=== PATIENT | female | born 1980 | race American Indian/Alaskan Native ===

== ENCOUNTER 2017-11-03 22:17 | Inpatient (IN) | payer OTHER ==
--- NOTE | 2017-11-03 23:01 | History and Physical Report ---
History of Present Illness Date of admission: 11/03/17 22:17 History of present illness: Patient presents for labor induction due to macrosomia. Estimated weight of 4035 g Menstrual History Regularity: regular Menses every: 28 days Duration: 5 LMP: 01/26/2017 LMP reliability: definite test type: urine test Date: 09/21/2017 BC at conception: none Planned ? yes EDC Calculations LMP: 11/02/2017 EDC Confirmation: 11/02/2017 Past History : 2 Term Births: 1 Living Children: 1 Para: 1 # 1 Delivery date: 2012 Weeks Gestation: 40 Delivery type: Anesthesia type: none Delivery location: [facility] Infant Sex: Female weight: 7 Comments: had elective IOL @ 40w Past Surgical History: female circumcision Past Medical History Surgery (Non-tube coremaker): female circumcision Abnormal PAP: negative KRYSTAL Exposure: negative Infertility: negative Uterine Anomaly: negative Uterine Surgery (not C/S): negative Other Gynecologic Problems: negative Infection History Hx of STD: none HIV Risk Eval: low risk Hepatitis B Risk Eval: low risk Personal hx. of genital herpes: no Partner hx. of genital herpes: no Varicella/Chicken Pox Status: Previous Disease TB Risk: no Genetic History ADVANCED MATERNAL AGE Congenital Heart Defect: Mom: no Dad: no Sam Disease: Mom: no Dad: no Thalassemia Mom: no Dad: no Neural Tube Defect Mom: no Dad: no Down's Syndrome Mom: no Dad: no Adin-Sachs Mom: no Dad: no Sickle Cell Disease/Trait Mom: no Dad: no Hemophilia Mom: no Dad: no Muscular Dystrophy Mom: no Dad: no Cystic Fibrosis Mom: no Dad: no Whiteside Chorea Mom: no Dad: no Mental Retardation Mom: no Dad: no Fragile X Mom: no Dad: no Other Genetic/Chromosomal Disorder Mom: no Dad: no Child w/other defect Mom: no Dad: no Enviromental Exposures Xray Exposure: no Medication, drug, or alcohol use since LMP: no Chemical/Other Exposure: no Exposure to Cat Liter: no Hx of Parvovirus (Fifth Disease): no Occupational Exposure to Children: none Current Allergies (reviewed today): No known allergies Past History Past Medical History: other (see HPI) Past Surgical History: other (see HPI) Family/Genetic History: other (see HPI) Social history: other (see HPI) - Obstetrical History Expected Date of Delivery: 11/02/17 Actual Gestation: 40 Week(s) 1 Day(s) : 2 Para: 1 Hx # Term Pregnancies: 1 Number of Pregnancies: 0 Spontaneous Abortions: 0 Induced : 0 Number of Living Children: 1 - Physical Exam Breasts: Positive: deferred Cardiovascular: Regular rate Lungs: Positive: Normal air movement Abdomen: Positive: normal appearance, soft Genitourinary (Female): Positive: other (s/p circumcision) Results All other labs normal. Assessment and Plan - Patient Problems (1) macrosomia affecting management of mother, antepartum Current Visit: Yes Status: Acute Plan to address problem: Discussed with the patient the nature of serial induction. Questions answered. Discussed the risks of and. indications for operative intervention. Will place Cervidil this evening overnight. After removal in the morning we will allow to eat and then started Pitocin IV .
[2017-11-04] MEDS ORDERED: PHENERGAN PO PRN (01:17)
[2017-11-04] MEDS ORDERED: BRETHINE IVP PRN (01:17)
[2017-11-04] MEDS ORDERED: CERVIDIL VG ONE (01:17)
[2017-11-04] MEDS ORDERED: XYLOCAINE 2% INFILTRATI ONE (01:17)
[2017-11-04] MEDS ORDERED: ePHEDrine SULFATE IV PRN ×2 (01:17→19:04)
[2017-11-04] MEDS ORDERED: STADOL IV PRN (01:17)
[2017-11-04] MEDS ORDERED: AMBIEN PO PRN (01:22)
[2017-11-04 01:42] LABS: Hematocrit 35.6 % (30.3-42.9); Mean Corpuscular HGB Conc 34 % (30-34); Mean Corpuscular Volume 75 fl (79-97); Platelet Count 170 K/mm3 (140-440); Red Blood Count 4.72 M/mm3 (3.65-5.03); Red Cell Distribution Width 17.8 % (13.2-15.2)
[2017-11-04] MEDS: LACTATED RINGERS 1,000 ML IV SCH ×4 (01:48→23:47)
[2017-11-04 01:51] LABS: Mean Corpuscular Hemoglobin 25 pg (28-32)
[2017-11-04] MEDS ORDERED: PITOCin/NS 20 UNIT/1000ML DRIP 20 UNITS/1,000 ML BAG IV SCH (02:00)
--- NOTE | 2017-11-04 07:28 | Event Note ---
Date: 11/04/17 cervidil placed late (0200) will keep in until 1145, remove and allow regular lunch then start pitocin 4x4. JOHNATHAN Ross aware of plan of care.
[2017-11-04] MEDS ORDERED: PITOCin/NS 30 UNIT/500ML 30 UNITS/500 ML BAG IV SCH (12:00)
--- NOTE | 2017-11-04 18:47 | Progress Note ---
Assessment and Plan - Patient Problems (1) macrosomia affecting management of mother, antepartum Current Visit: Yes Status: Acute Plan to address problem: -cont to hold pitocin -will bolus for epidural at this time -d/w riks of c/s for failure to progress, Cat II/III tracing remote from delivery, or other or maternal indications -EFW 8lb 14 oz prevous was 7lbs and pt delivered w/o any problems or dystocia as per her and in [place]. -anticipate Subjective - Subjective Date of service: 11/04/17 Principal diagnosis: 40+ wks for IOL LGA Interval history: Pt advised that she is having a cat II tracing and that internal monitors are needed. When I examined the pt the bed was noted to be wet and there is light green fluid seen on exam. Bag palpated pt pt is ruptured. Exact time of rupture is not known. ISE, IUPC placed w/o difficulty. Pitocin will be d/c at this time. I did d/w pt and risk of c/s for worsening tracing remote from delivery. Pt and expressed understanding and questions were addressed and answered. Will sign c/s consent at this time. Pt will bolous for epidural at this time. tracing improving now that the pitocin is off. All questions were addressed and answered. Patient reports: loss of fluid, no new complaints Objective - Vital Signs Vital Signs: Vital Signs - 12hr 11/04/17 11/04/17 11/04/17 07:48 10:38 15:26 Temperature 97.9 F 98.4 F 97.6 F Respiratory 18 20 18 Rate - Exam FHR: category 2 Cervical Dilatation: 5 Cervical Effacement Percentage: 70 station: -2 Uterine Contraction Pattern: Regular Uterine Tone Measurement Phase: Resting Uterine Contraction Intensity: Moderate - Labs Labs: Abnormal Labs 11/04/17 00:45 MCV 75 L MCH 25 L RDW 17.8 H Laboratory Results - last 24 hr 11/04/17 11/04/17 00:45 00:45 WBC 10.4 RBC 4.72 Hgb 12.0 Hct 35.6 MCV 75 L MCH 25 L MCHC 34 RDW 17.8 H Plt Count 170 Blood Type B POSITIVE Antibody Screen Negative
[2017-11-04] MEDS ORDERED: NARCAN 2 MG/2 ML IV PRN (19:04)
--- NOTE | 2017-11-04 19:04 | Anesthesia Consultation ---
Anesthesia Consult and Med Hx - Airway Anesthetic Teeth Evaluation: Good ROM Head & Neck: Adequate Mental/Hyoid Distance: Adequate Mallampati Class: Class II Intubation Access Assessment: Good - Pulmonary Exam CTA: Yes - Cardiac Exam Cardiac Exam: RRR - Pre-Operative Health Status ASA Pre-Surgery Classification: ASA2 Proposed Anesthetic Plan: Epidural, Spinal - Pulmonary Hx Asthma: No - Cardiovascular System Hx Hypertension: No - Central Nervous System Hx Seizures: No Hx Psychiatric Problems: No - Endocrine Hx Renal Disease: No Hx Hypothyroidism: No Hx Hyperthyroidism: No - Hematic Hx Anemia: No Hx Sickle Cell Disease: No - Other Systems Hx Alcohol Use: No
--- NOTE | 2017-11-04 19:17 | Event Note ---
Date: 11/04/17 suspected SROM at 1704pm. Pt noted to have light mec at time of my exam.
[2017-11-04] MEDS ORDERED: fentaNYL-BUPIV 2 MCG/ML-0.125% 200 MCG/100 ML BAG EPIDURAL SCH (20:00)
--- NOTE | 2017-11-04 22:49 | Progress Note ---
Assessment and Plan - Patient Problems (1) macrosomia affecting management of mother, antepartum Current Visit: Yes Status: Acute Plan to address problem: -cont to hold pitocin -d/w riks of c/s for failure to progress, Cat II/III tracing remote from delivery, or other or maternal indications -EFW 8lb 14 oz prevous was 7lbs and pt delivered w/o any problems or dystocia as per her and in [place]. -slight cervical change noted with inadequate contractions. Will con't pitocin to get adequate MVUs with position changes with hopes of getting more descent of the head. Some small caput is noted at this time. -Cat I tracing and fetus status is overall reassurring at this time. -anticipate Subjective - Subjective Date of service: 11/04/17 Principal diagnosis: 40+ wks for IOL LGA Interval history: Pt cx is now 5/80/0 to -1 with some caput present. Tracing is now cat 1. I d/w pt and that she is off the labor curve for a multip but has not had adequate contractions due to pitocin just being restarted and only being at 8mu. The plan is to revaluate her in the next two hours and if still 5cm to proceed with c/s as she would have been unchanged of 6hours. Currently the head is more applied and cx is more effaced since the last exam. She request more time if baby is doing well and I am ok with this. Pt also expressed understanding of the plan of care. All questions were addressed and answered. Patient reports: loss of fluid, no new complaints Objective - Vital Signs Vital Signs: Vital Signs - 12hr 11/04/17 11/04/17 11/04/17 15:26 19:11 21:50 Temperature 97.6 F 98 F 98.4 F Respiratory 18 18 Rate - Exam Cervical Dilatation: 5.5 Cervical Effacement Percentage: 80 station: 0 Uterine Contraction Pattern: Regular Uterine Tone Measurement Phase: Resting Uterine Contraction Intensity: Mild - Labs Labs: Abnormal Labs 11/04/17 00:45 MCV 75 L MCH 25 L RDW 17.8 H Laboratory Results - last 24 hr 11/04/17 11/04/17 00:45 00:45 WBC 10.4 RBC 4.72 Hgb 12.0 Hct 35.6 MCV 75 L MCH 25 L MCHC 34 RDW 17.8 H Plt Count 170 Blood Type B POSITIVE Antibody Screen Negative
[2017-11-05] MEDS: LACTATED RINGERS 1,000 ML IV SCH (00:21)
[2017-11-05] MEDS ORDERED: BICITRA ONE (01:21)
[2017-11-05] MEDS ORDERED: REGLAN ONE (01:22)
[2017-11-05] MEDS ORDERED: ANCEF/STERILE WATER 2 GM/20 ML 2 GM/20 ML SYRINGE IV ONE (01:22)
[2017-11-05] MEDS ORDERED: PEPCID IV ONE ×2 (01:22→03:27)
--- NOTE | 2017-11-05 01:27 | Event Note ---
Date: 11/05/17 Pt continues to have minimal cervical change with molding noted and cat II tracing previously cat I. will proceed with primary c/s at this time.Charge nurse aware and will contact anesthesia.
[2017-11-05] MEDS ORDERED: NACL 0.9% IR ONE (01:45)
[2017-11-05] MEDS ORDERED: WATER FOR IRRIG STERILE IR ONE (01:45)
[2017-11-05] MEDS ORDERED: ANCEF/STERILE WATER 2 GM/20 ML IV ONE (01:48)
[2017-11-05] MEDS ORDERED: XYLOCAINE MPF 2% ONE (01:50)
[2017-11-05] MEDS ORDERED: METHERGINE IM ONE ×2 (02:10→02:22)
[2017-11-05] MEDS ORDERED: ZOFRAN ONE (02:40)
[2017-11-05] MEDS ORDERED: TORADOL ONE (02:40)
[2017-11-05] MEDS ORDERED: ASTRAMORPH PF 10MG/10ML ONE (02:41)
--- NOTE | 2017-11-05 03:11 | Operative Report ---
Operative Report Operative Report: Date of procedure: 11/05/2017 Pre-operative diagnosis: 40-3/7 weeks' gestation Suspected macrosomia Nonreassuring tracing remote from delivery Failure to progress Post-operative diagnosis: Same plus uterine fibroid Procedure name(s): Primary low transverse section via Pfannenstiel skin incision Surgeon: Dr. Montejo [employer] Clerk: IMANI Anesthesia: Epidural EBL: 600 mL Urine output: 200 mL of clear urine out at the procedure Fluids: 800 mL Findings: Live born female weight 7 lbs. 1 oz. Apgars of 8 and 9 at one and 5 minutes in L OP presentation 3-4 cm fibroid in the lower uterine segment Grossly normal fallopian tubes and ovaries bilaterally Indications: Patient admitted to the hospital for induction of labor secondary to suspected macrosomia. Patient progressed to 5-6 cm and remained unchanged for more than 6 hours in dilation and station. began to develop molding. Patient also was noted to have category 2 tracing with contractions. Decision was made at this time to proceed with primary section. Procedure: Patient was taking to the operating room. Patient was then prepped and draped in sterile fashion after anesthesia was found to be adequate. A low transverse skin incision was made with the scalpel and carried down to the underlying layer of fascia with the Bovie. The fascia was then incised in the midline and this incision was extended bilaterally with the Bovie. The superior aspect of the fascia was grasped with Xiomara clamps tented upward and dissected off of the anterior rectus muscles with the scalpel. In similar fashion the inferior aspect of the fascia was grasped with Xiomara clamps tented upward and dissected off of the anterior rectus muscles. The rectus muscles were then bluntly divided in the midline. The peritoneum was identified and entered into sharply. The Clyde retractor was placed area The bladder blade was placed. The bladder flap was created using the Metzenbaum scissors. The bladder blade was replaced. A lower transverse uterine incision was made with the scalpel and extended bilaterally with blunt dissection. The 's head was then delivered atraumatically. Nuchal cord 1 noted and easily reduced. The anterior shoulder and rest of infant delivered without difficulty. The umbilical cord was clamped x2. The cord was cut. The infant was then placed in sterile bassinet. The placenta was manually extracted in its entirety. The uterus was exteriorized and cleared of all clots and debris. The uterine incision was closed using 0 Vicryl in a running locking fashion. Several figure -of-eight stitches using 0 Vicryl were placed along the incision line to secure excellent hemostasis. Interceed was also placed along the incision. The posterior cul-de-sac was copiously irrigated. The uterus was returned to the abdomen. The gutters were also irrigated. The Clyde retractor was removed from the abdomen. The anterior rectus muscles were reapproximated using 3-0 Vicryl. The anterior rectus fascia was reapproximated using 0 Vicryl in a running fashion. The subcuticular fat was reapproximated using 2-0 Vicryl in a running fashion. The skin was reapproximated with 4-0 Monocryl in a subcuticular stitch. The patient tolerated the procedure well. Sponge lap and needle counts were all correct x3. Patient was taken to the recovery room awake and in stable condition.
[2017-11-05] MEDS ORDERED: TUCKS PAD TP PRN (03:14)
[2017-11-05] MEDS ORDERED: TORADOL IV PRN (03:14)
[2017-11-05] MEDS ORDERED: NARCAN 0.4 MG/1 ML IV PRN ×2 (03:14→03:26)
[2017-11-05] MEDS ORDERED: MYLICON PO PRN (03:14)
[2017-11-05] MEDS ORDERED: MILK OF MAGNESIA PO PRN (03:14)
[2017-11-05] MEDS ORDERED: LANSINOH TP PRN (03:14)
[2017-11-05] MEDS ORDERED: ZOFRAN IV PRN (03:26)
[2017-11-05] MEDS ORDERED: NUBAIN IV PRN (03:26)
[2017-11-05] MEDS ORDERED: DILAUDID IV PRN ×2 (03:26)
[2017-11-05] MEDS ORDERED: PHENERGAN PO PRN (03:26)
[2017-11-05] MEDS ORDERED: BENADRYL IV PRN (03:26)
[2017-11-05] MEDS ORDERED: PHENERGAN PR PRN (03:26)
[2017-11-05] MEDS ORDERED: REGLAN IV ONE (03:27)
[2017-11-05] MEDS ORDERED: BICITRA PO ONE (03:27)
[2017-11-05] MEDS ORDERED: ANCEF/STERILE WATER 2 GM/20 ML 2 GM/20 ML SYRINGE IV NR (04:00)
[2017-11-05] MEDS ORDERED: SODIUM CHLORIDE FLUSH SYRINGE 10 ML IV NR ×2 (04:00)
[2017-11-05] MEDS ORDERED: ANCEF/NS 1 GM/50 ML 1 GM/50 ML BAG IV SCH (04:00)
[2017-11-05] MEDS: D5LR 1,000 ML IV SCH ×2 (05:52→17:07)
[2017-11-05] MEDS: ceFAZolin 1 GM in NACL 0.9% 20 ML IV SCH ×2 (12:00→20:30)
[2017-11-05 15:43] LABS: Hematocrit 30.7 % (30.3-42.9); Hemoglobin 10.1 gm/dl (10.1-14.3)
[2017-11-05] MEDS: MOTRIN PO PRN (22:16)
[2017-11-06] MEDS: MOTRIN PO PRN ×3 (06:08→19:48)
--- NOTE | 2017-11-06 07:39 | Progress Note ---
Assessment and Plan patient doing well, no complaints. VSSAF, H&H 10.1/30.7, incision dry and intact, lochia small - scant. Continue postop pathway, anticipate d/c home tomorrow. - Patient Problems (1) delivery delivered Current Visit: Yes Status: Acute Subjective - Subjective Date of service: 11/06/17 Principal diagnosis: postop day #1 s/p primary c/s Patient reports: appetite normal, voiding normally, pain well controlled, ambulating normally, no dizzy ambulation, no nauseated : doing well, nursing well, bottle feeding Objective - Vital Signs Latest vital signs: Vital Signs Temp Pulse Resp BP Pulse Ox 11/06/17 06:48 18 11/06/17 06:08 18 11/06/17 00:00 98.7 F 71 16 101/71 11/05/17 23:16 18 11/05/17 22:16 18 11/05/17 19:30 98.6 F 81 16 99/76 11/05/17 16:45 98.4 F 81 18 94/57 100 11/05/17 16:17 93/60 11/05/17 08:12 98.2 F 88 18 103/70 100 Intake and Output 11/05/17 11/05/17 11/06/17 15:59 23:59 07:59 Intake Total 1000 600 Output Total 900 1900 1400 Balance 100 -1300 -1400 Intake: IV 1000 D5lr 1,000 ml @ 125 mls/ 1000 hr IV DIRECT ENA Rx#: [id number] Intake, Free Water 600 Output: Urine 900 1900 1400 Indwelling Catheter 900 1100 Void 800 1400 Other: Total, Output Amount 900 800 800 # Voids Void 1 1 - Exam Breasts: Present: normal, Cardiovascular: Present: Regular rate Lungs: Present: Clear to auscultation, Normal air movement Abdomen: Present: normal appearance, soft Uterus: Present: normal, firm Extremities: Present: normal Deep Tendon Reflex Grade: Normal +2 Incision: Present: normal, dry, intact
[2017-11-06] MEDS: FEOSOL PO SCH (11:30)
[2017-11-06] MEDS: NORCO 5/325 PO PRN (19:49)
[2017-11-07] MEDS: NORCO 5/325 PO PRN ×3 (00:07→14:00)
[2017-11-07] MEDS: MOTRIN PO PRN ×2 (02:11→09:00)
[2017-11-07 08:59] VITALS: BP 107/76
[2017-11-07] MEDS: FEOSOL PO SCH (09:00)
--- NOTE | 2017-11-07 10:32 | Discharge Summary ---
Providers - Providers Date of Admission: 11/03/17 22:17 Date of discharge: 11/07/17 (pt desires d/c home today) Attending physician: LIBERTY ESPINOZA Primary care physician: LIBERTY ESPINOZA Hospitalization Reason for admission: induction of labor Delivery: Procedure: section Procedure details: see op note Episiotomy: none Laceration: none Incision: normal, dry, intact (open to air with steristrips in place) Other procedures: none complications: none Discharge diagnosis: IUP at term delivered Ramona baby: female Hospital course: Pt admitted for IOL. Pt had arrest of labor and had c/s that was not complication. Pt post op course has not been complicated. She desires d/c home today. Condition at discharge: Good Disposition: DC-01 TO HOME OR SELFCARE - Discharge Diagnoses (1) macrosomia affecting management of mother, antepartum Status: Acute (2) delivery delivered Status: Acute Plan - Discharge Medications Prescriptions: Ibuprofen 800 mg PO Q6HR #30 tablet Lidocain2.5%/Prilocai2.5% [Emla] 2 gm TP ONCE #1 tube oxyCODONE /ACETAMINOPHEN [Percocet 5/325] 1 tab PO Q4HR #30 tab - Provider Discharge Summary Activity: routine, no sex for 6 weeks, no heavy lifting 4 weeks, no strenuous exercise Diet: routine Instructions: routine Additional instructions: [] Smoking cessation referral if applicable(refer to patient education folder for contact #) [] Refer to [facility] Booklet Call your doctor immediately for: * Fever > 100.5 * Heavy vaginal bleeding ( >1 pad per hour) * Severe persistent headache * Shortness of breath * Reddened, hot, painful area to leg or breast * Drainage or odor from incision. * Keep incision clean and dry at all times and follow doctor's instructions regarding bathing/showering - Follow up plan Follow up: LIBERTY ESPINOZA MD [Primary Care Provider] - 7 Days
== END 2017-11-07 15:00 | disposition home or self-care (01) | DRG 766 ==
LOC: LD 22:17 → OB 11-05 05:08
PROVIDERS: ADMIT Obstetrics & Gynecology; ATTEND Obstetrics & Gynecology
PROC: 3E033VJ Introduction of Other Hormone into Peripheral Vein, Percutaneous Approach (ICD-10-PCS; 2017-11-04)
PROC: 10D00Z1 Extraction of Products of Conception, Low, Open Approach (ICD-10-PCS; principal; 2017-11-05)
DX: O36.63X0 Maternal care for excessive fetal growth, third trimester, not applicable or unspecified (principal); O76 Abnormality in fetal heart rate and rhythm complicating labor and delivery; Z3A.40 40 weeks gestation of pregnancy; Z37.0 Single live birth
CPT/HCPCS: 36415; 85014; 85018; 85027; 86762; 86850; 86900; 86901; 88307; 99211; C1765; G0463; J0690; J1885; J2210; J2274; J2405; J2590; J2765; J7120; J7121